=== PATIENT | female | born 1980 | race Caucasian/White ===

== ENCOUNTER 2017-10-15 15:58 | Inpatient (IN) | payer OTHER ==
[~2017-10-15] VITALS: Ht 167.6 cm; Wt 61.5 kg
[2017-10-15 16:46] VITALS: BP 128/67
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
[2017-10-15] MEDS ORDERED: ABILIFY5 M1 PO (18:04)
[2017-10-15] MEDS ORDERED: LYRICA150 M1 PO (18:08)
[2017-10-15] MEDS ORDERED: CYMBALTA30 M1 PO (18:11)
[2017-10-15] MEDS ORDERED: TRAZODONE HCL50 M1 PO (18:13)
[2017-10-15 19:51] VITALS: BP 123/71
[2017-10-16 07:36] VITALS: BP 108/67
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
[2017-10-16 12:23] VITALS: BP 123/63
--- NOTE | 2017-10-16 14:25 | History & Physical ---
General Information and HPI MD Statement: I have seen and personally examined RIGO YAN and documented this H& P. The patient is a 36 year old F who presented with a patient stated chief complaint of suicidal ideation and worsening depression. Source of Information: patient Exam Limitations: no limitations History of Present Illness: 56-year-old female with past medical history significant for fibromyalgia on Lyrica, depression who is admitted to Inpatient Psychiatry suicidal ideation. Patient claims that she was 5 minutes of a from implementing the plan that she had. She had razors in her hand in the bathroom and she wanted to cut his wrists. She's been feeling very overwhelmed and stressed out about situation at home. She has to move soon to a place that she does not have a place to move. Financially she is broken is also committing of some headache. She claims that Lyrica otherwise does help her fibromyalgia. She is having difficulty sleeping. She denies any pain nausea, vomiting or diarrhea constipation. She denies any urinary complaints. Allergies/Medications Allergies: Coded Allergies: Penicillins (Severe, DIFFICULTY BREATHING 10/15/17) Home Med list Aripiprazole (Abilify) 5 MG TABLET 1 TAB PO Q HS MOOD STABILIZER (Reported) Duloxetine Hydrochloride (Cymbalta) 30 MG CAPSULE.DR 30 MG PO DAILY DEPRESSION (Reported) Pregabalin (Lyrica) 150 MG CAPSULE 150 MG PO TID NERVE PAIN (Reported) Trazodone HCl 50 MG TABLET 50 MG PO AT BEDTIME SLEEP AID (Reported) Past History Medical History Neurological: NONE EENT: NONE Cardiovascular: NONE Respiratory: NONE Gastrointestinal: NONE Hepatic: NONE Renal: NONE Musculoskeletal: fibromyalgia Psychiatric: depression Endocrine: NONE Blood Disorders: NONE Cancer(s): NONE RECREATION ADVISER/Reproductive: NONE History of MRSA: No History of VRE: No History of CDIFF: No Influenza Vaccine: 06/25/17 Surgical History Surgical History: none Past Family/Social History Family History Relations & Conditions if any GRANDPARENTS Relation not specified for: FH: diabetes mellitus Psychosocial History Where do you live? 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 EENTM: Reports: see HPI. Cardiovascular: Reports: see HPI. Respiratory: Reports: see HPI. GI: Reports: see HPI. Musculoskeletal: Reports: see HPI. Neurological/Psychological: Reports: see HPI. Exam & Diagnostic Data Last 24 Hrs of Vital Signs/I&O Vital Signs Date Time Temp Pulse Resp B/P B/P Pulse O2 O2 Flow FiO2 Mean Ox Delivery Rate 10/16 1223 73 123/63 10/16 0736 97.5 81 108/67 10/15 1951 98.2 92 123/71 10/15 1646 99.3 94 128/67 Intake & Output 10/16 1600 10/16 0800 10/16 0000 Intake Total Output Total Balance Patient 136 lb Weight Physical Exam General Appearance Alert, Oriented X3, Cooperative, No Acute Distress Skin No Rashes HEENT PERRLA Neck Supple Cardiovascular Regular Rate, Normal S1, Normal S2 Lungs Clear to Auscultation Abdomen Normal Bowel Sounds, Soft, No Tenderness Neurological Cranial Nerves II through XII: INTACT Last 24 Hrs of Labs/Steffen: No labs. Assessment/Plan Assessment: 36-year-old female here with suicidal ideation and worsening depression. Patient also is complaining of headache. Will recommend continue Lyrica. I will check basic blood work for her. I will recommend giving her some ibuprofen off the Tylenol to help with headache. Further psych management will be per psychiatry. As Ranked By This Provider Problem List: 1. Fibromyalgia 2. Depression 3. Headache Miscellaneous Miscellaneous Documentation Attending Case Discussed With: Erendira Wylie M.D. Primary Care Physician: Unknown Patient sees these Specialists none Level of Patient Care: HAYDEE Turner
--- NOTE | 2017-10-16 15:34 | CPS PROVIDER INIT ASMT PSYCH ---
Psychiatric Admission Environmental Conservation Professor's Note Reviewed: Yes Patient Seen and Examined: Yes Identifying Information: 36 yo SWF admitted 10/15/17 on a voluntary basis, referred by [facility] ER. Chief Complaint: SI. Reportedly was in bathtub with razor blade, preparing to cut herself. Reaction to Hospitalization: "A little scared and nervous, but other than that, hopeful that it will help." History of Present Illness Onset of Illness: This episode: 10/10/17. Circumstances Leading to Admission: SI with plan to cut wrist, as above. Problem(s) Justifying Need for Admission: SI. Depression. Other HPI: Reports she was inpatient at [facility] ~ 1 month ago and was discharged 2 weeks ago. Reports symptoms of depression came crashing down again on 10/10/17. She didn't feel well and didn't want to get out of bed. Was feeling very down. Attended [facility] IOP Friday and Friday. Friday night was in the bathtub with a razor. Called her visiting nurse, who called 911. Patient was BIBA to [facility] ER but there were no psychiatric beds available at [facility], so the patient was referred to . Patient reports there was no clear trigger to decompensation. Reports medication and treatment compliance. Does not use drugs or alcohol. Sleep: was not very good since mother in 1997 but got better recently at [facility] with trazodone and Rozerem. Sleep got worse as of this past Friday. Appetite: "it seems to be okay." Energy: definite drop for the past week or so. Case and treatment plan discussed in team meeting. Staff reports that the patient has a headache that she attributes to Abilify. Denying SI. Flat affect. Past Psychiatric History Past Diagnosis(es)- if any: Depression. Fibromyalgia. Past Precipitating Factors- if any: Unclear. - Include inpatient and outpatient treatment Treatment History: OPT Masha Han LCSW. Inpatient recently at [facility]. IOP recently at [facility]. History of Suicide Attempts or Gestures Cut wrist at 17 yo. Substance Abuse History: Denies tobacco and drugs. Alcohol: very rare, not in a really long time. Allergies: Coded Allergies: Penicillins (Severe, DIFFICULTY BREATHING 10/15/17) Home Med List: Lyrica 150 mg tid Cymbalta 30 mg qAM Abilify 5 mg qhs Trazodone 50 mg qhs - Include any medical condition(s) that may - impact the patient's recovery/remission Past Medical History: Fibromyalgia. Appendectomy. Past History Medical History Neurological: NONE EENT: NONE Cardiovascular: NONE Respiratory: NONE Gastrointestinal: NONE Hepatic: NONE Renal: NONE Musculoskeletal: fibromyalgia Psychiatric: depression Endocrine: NONE Blood Disorders: NONE Cancer(s): NONE TOUR COORDINATOR/Reproductive: NONE History of MRSA: No History of VRE: No History of CDIFF: No Influenza Vaccine: 06/25/17 Surgical History Surgical History: appendectomy Psychiatric Family/Social Hx Family History Psychiatric Illness: 2 maternal aunts depression, 1 attempted suicide. Substance Use: Mother drank at times. Suicides: Denied. Social History Living Situation: Lives with 13 yo daughter and a male roommate. Reports that DCF cleared daughter's staying with the roommate while the patient is in the hospital. Significant Relationships (family/friends): Daughter, age 13. Mother in 1997 from an aneurysm in the base of her skull. Patient was 16 at the time. Only child. Father in [place], no contact x 2 years. Education: Graduate of [employer]. Vocation/Occupation: Has not been able to work for ~6 years. Has no income. 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 Legal: No history of arrests. Healthly Behaviors Screening Tobacco Screening Tobacco Use from ED Docu: Never used - If tobacco counseling indicated - the following topics are required. - #1 Recognizing dangerous situations. - #2 Coping Skills. - #3 Basic information about quitting. Status of Tobacco Cessation Counseling: Not Applicable Cessation Med Status Not Applicable Alcohol Screening - ETOH screen POS if BAL >=80 or Audit-C>= M4/F3 Audit-C Score from Diag Assess: 0 Alcohol Use Screening Results: Neg per Audit C &/or BAL - If ETOH counseling indicated - the following topics are required. - #1 Express concern about the patient's - drinking at unhealthy levels, include informing - of national norms for moderate drinking: - men <= 14 drinks/week, max 4 drinks/occasion - women <= 7 drinks/week, max 3 drinks/occasion - #2 Providing feedback, including linking alcohol to - negative physical effects (liver injury, hypertension) - negative emotional effects (relationship problems and - depression) - negative occupational consequences (reduced work - performance) - #3 Advising the patient to abstain from alcohol or - to drink below national norms for moderate drinking - (as listed above). Status of ETOH Use Counseling: N/A B/C NO ETOH Use Metabolic Screening - Screen if on a Neuroleptic Medication - Metabolic screening should include: - Blood Pressure, BMI, Glucose or Hgb A1c, & a - Lipid profile from within the past 365 days. Metabolic Screening () Not Applicable, patient not on a neuroleptic. OR () Patient on a neuroleptic(s) . Enter below results for Hemoglobin A1C, and lipid panel if obtained during the last 365 days. BMI: 21.800 Blood Pressure: 123/63 Laboratory Results From [facility] (If applicable): [x] Pending for 10/17/17. Exam and Plan Mental Status Examination Ambulation Status: Ambulating without difficulty. Appearance: Dressed in a shirt and scrub pants. Appears to have alternating exotropia. Attitude towards examiner: Calm, polite and cooperative. Psychomotor activity: There is no psychomotor agitation/retardation. Behavior: WNL. Quality of speech: Speech is normal in volume, rate and tone. Affect: Affect is calm and blunted. Mood: "I'm a little down today. Impending doom feeling [is] getting worse." Rates sad mood about 7/10. Rates anxiety about 5-6/10. Feels hopeless and helpless. Denies feeling worthless or guilty. Suicidal Ideation: Reports suicidal ideation, feeling that she still would be better off not here. Denies suicide plan or intent. Gives a safety promise for here. Homicidal Ideation: Denies. Hallucinations: Denies AH and VH. Paranoid/Delusional Material: Denies PI and magical matthew. Difficulties with thought organization: Thinking is clear, logical and goal-directed. Insight: Fair. Judgment: Limited. Orientation: Oriented 3. Cognition: Grossly intact. Memory Function: Grossly intact. Estimate of intellectual functioning: Average. Assets/Strengths Patient Identified Assets/Strengths: Creativity and intelligence. Impression/Plan Impression and Plan: The patient is here with recent suicidal ideation in the context of treatment compliance, limited supports, and no income. - Include all active medical diagnosis that require tx DSM 5 Diagnosis(es): Major depression, single episode, severe. Fibromyalgia. - Initial Tx Plan for Active Psych & Medical Conditions Treatment Plan: The patient will be monitored on the unit for safety and mood disorder. Home medications have been continued. Patient has agreed to increase Cymbalta dose to 60 mg daily. Additional information is needed from [facility] and from collaterals. Anticipate once clinically stable, that the patient will be discharged to home, daughter and roommate and will be referred back to [facility]'s IOP. - Factors that would help patient function - in a less restrictive setting. Factors: No longer feeling suicidal.
[2017-10-16 15:41] VITALS: BP 105/61
--- NOTE | 2017-10-16 17:08 | SOCIAL WORKER PROG NOTE PSYCH ---
Social Work Progress Note Progress Note 4:05pm This designer/writer met with patient. She repored that she came to the hospital due to SI: "everything is going on." She stated that she is looking for a new place to stay due to being "kicked out" of her friends house after staying there for a year. Patient stated that she has a 13 year old daughter and has DCF involvement. Patient stated that she had been going to IOP at [facility] but did not find it helpful and felt that the clinicians were not attentive to her care. Patient also reported struggling with Fibromyalgia. She stated that she attempted to apply for social security disability, but was denied and is in the process of appeals. Patient denied SI/HI/AH/VH.
[2017-10-16 20:14] VITALS: BP 135/78
[2017-10-17 07:39] VITALS: BP 120/68
[2017-10-17 11:50] VITALS: BP 105/69
--- NOTE | 2017-10-17 13:43 | CP SOUTH PROGRESS NOTE PSYCH ---
Psych (Inpt) Progress Note Progress Note Include the following elements, when applicable: Involvement in the active treatment of the patient with behavioral observations of the patient and the patient's response to the treatment. Review of the ongoing treatment process in the context of the treatment plan. Indication of how multi-disciplinary staff members are carrying out the treatment plan. Plans for future interventions and recommendations for revision of the treatment plan. Liaison with other physicians/providers. Progress Note: Case and treatment plan discussed in team meeting. Staff reports that yesterday , patient said she had a good day and was adjusting to the unit. Described as pleasant. Reportedly is homeless. The patient indicated this morning she had suicidal ideation. Patient seen at 12:05 PM. States she feels not too bad but she is a little lightheaded today. Reports she is drinking water. Affect is calm and blunted. Reports feeling a little suicidal. Gives a safety promise for here. Rates sad mood probably 6/10 today. Reports "it's definitely there and poking at me when it's quiet." Reports she had poor sleep because of roommate. Rates anxiety probably about 4/10. She feels that she is getting the help that she needs. Feels hopeless. Feels helpless but less so. Feels worthless. Feels guilty a little bit. Denies homicidal ideation. Denies auditory and visual hallucinations. Denies paranoid ideation. Reports appetite was not that great this morning. Energy is low. Tolerating current medications and reports adapting to them. Reports headache is still there but is not bad. Reports Neurontin is helping with anxiety. IMPRESSION: Slow progress. Continue present treatment plan. Continues to require inpatient level of care in light of ongoing suicidal ideation. Monitor response to recent increase in Cymbalta dose. Anticipate likely discharge mid-week next week.
[2017-10-17 15:58] VITALS: BP 123/76
--- NOTE | 2017-10-17 16:44 | SOCIAL WORKER PROG NOTE PSYCH ---
Social Work Progress Note Progress Note This service writer met with patient. She described her mood as "down." She stated that she feels safe on this unit and would immediately inform staff should she feel unsafe or have other concerns. Patient expressed interest in attending IOP. This service writer inquired about how this would impact her location as well as her daughter's school. She stated that she has previously discussed with her daughter the possibility of moving while they are looking for housing. She stated that she would like to attend IOP as "I have heard really good things about it." She stated that she does not want to return to [place] and has concerns about being able to utilize the walk in hours at [facility] due to transportation difficulties as well as experience with medical cabs being unreliable. Patient denied SI/HI/AH/VH. She stated that she has left a vm for her [facility] worker, Riley Reyes, who is aware that she admitted to [facility]. She stated that the friend her daughter is staying with has been approved by [facility]. Patient discussed interest in securing housing and returning to school to study nursing. She appeared future oriented and hopeful. Patient signed an JOE for Riley Reyes at [facility]. 3:09pm This service writer left vm for Riley Reyes, DCF worker, ([phone]) with a call back number.
[2017-10-17 20:05] VITALS: BP 102/68
[2017-10-18 07:47] VITALS: BP 105/61
[2017-10-18 12:30] VITALS: BP 107/63
--- NOTE | 2017-10-18 13:05 | CP SOUTH PROGRESS NOTE PSYCH ---
Psych (Inpt) Progress Note Progress Note Include the following elements, when applicable: Involvement in the active treatment of the patient with behavioral observations of the patient and the patient's response to the treatment. Review of the ongoing treatment process in the context of the treatment plan. Indication of how multi-disciplinary staff members are carrying out the treatment plan. Plans for future interventions and recommendations for revision of the treatment plan. Liaison with other physicians/providers. Progress Note: Chart reviewed, progress discussed with nursing staff. Interviewed patient this morning. She was seen coloring in the kitchen. Reports that her mood is low, her back pain in her low back is bothering her, "my fibromyalgia is acting up". She does report some suicidal ideation, though it is vague and passive without any intent or plan to harm herself on the unit. She is able to identify a number of coping mechanisms, including coloring, other forms of distraction, and we also discussed that a heating packs to her low back which she is very receptive to. She otherwise denies any medication side effects. Denies any HI or AVH. Vital signs are within normal limits. No new laboratory results today. Mental status exam: Adequately groomed female sitting at the table in the kitchen. Fair eye contact, no psychomotor agitation or retardation. Speech was within normal limits. Mood was "not so good ", affect was constricted, non- labile, thought process was logical and linear, content focused on pain, vague suicidal ideation without intent or plan, denies HI. Denies perceptual disturbances. Cognition is grossly intact. Insight and judgment is fair. A/P: Continues to slowly improve, will focus on supportive measures for pain and continue to encourage use of coping mechanisms. Per notes, plan discharge mid week this week.
[2017-10-18 16:02] VITALS: BP 114/62
[2017-10-18 19:26] VITALS: BP 127/68
[2017-10-19 07:37] VITALS: BP 112/68
[2017-10-19 12:04] VITALS: BP 115/59
--- NOTE | 2017-10-19 13:06 | CP SOUTH PROGRESS NOTE PSYCH ---
Psych (Inpt) Progress Note Progress Note Include the following elements, when applicable: Involvement in the active treatment of the patient with behavioral observations of the patient and the patient's response to the treatment. Review of the ongoing treatment process in the context of the treatment plan. Indication of how multi-disciplinary staff members are carrying out the treatment plan. Plans for future interventions and recommendations for revision of the treatment plan. Liaison with other physicians/providers. Progress Note: Chart reviewed, progress discussed with nursing staff. Interviewed patient this morning. Seems to be in increasingly better spirits compared to yesterday. She notes that she uses the hot pack for her back which improved her back pain. Says her mood is "a bit better", says this morning "I woke up and had some suicidal thoughts but no longer ". She has no intention to harm herself on the unit. She noted a nightly headache, which she has attributed to Abilify, and asks to switch this dosing to the morning, which I agreed to trial. She denies any current SI or HI, denies any current AVH. Vital signs are within normal limits. No new laboratory results today. Mental status exam: Adequately groomed female. Fair eye contact, no psychomotor agitation or retardation. Speech was within normal limits. Mood was "a litle better", affect was mildly constricted, non-labile, thought process was logical and linear, content focused on pain, denies current suicidal ideation, denies HI. Denies perceptual disturbances. Cognition is grossly intact. Insight and judgment is fair. A/P: Continues to slowly improve, will focus on supportive measures for pain and continue to encourage use of coping mechanisms. Per the patient's request, I switched Abilify dosing from at bedtime to every morning.
[2017-10-19 16:07] VITALS: BP 105/65
[2017-10-19 19:50] VITALS: BP 112/73
[2017-10-20 07:38] VITALS: BP 95/71
[2017-10-20 12:11] VITALS: BP 110/69
--- NOTE | 2017-10-20 14:00 | CP SOUTH PROGRESS NOTE PSYCH ---
Psych (Inpt) Progress Note Progress Note Include the following elements, when applicable: Involvement in the active treatment of the patient with behavioral observations of the patient and the patient's response to the treatment. Review of the ongoing treatment process in the context of the treatment plan. Indication of how multi-disciplinary staff members are carrying out the treatment plan. Plans for future interventions and recommendations for revision of the treatment plan. Liaison with other physicians/providers. Progress Note: Dr. Machado' notes reviewed. Case and treatment plan discussed in team meeting. Staff reports that the patient continues to report SI. Patient feels that her medications need to be addressed. Patient seen at 1:09 pm. She was walking laps around the unit and took a break to meet with me in office. "I'm not that great. Been really down all weekend. " Reports back pain 5/10 has been bothering her. Heating pad helps with the pain. Reports she now has daytime headaches with shift in Abilify dosing to morning. We agreed to stop the Abilify. Neurontin is helping with anxiety. Reports the number of nursing students on the unit this morning is making her anxious. Affect is calm and blunted to depressed. Sad ~8/10. Anxiety ~6/10. Feels hopeless, helpless, worthless and guilty. Reports SI, feeling that if she weren't here in the hospital, she would probably go back to her original plan of cutting her wrist. Gives a safety promise for here. Denies HI, AH, VH and PI. Sleep: "still not very good." Appetite: "that seems to be okay." Energy: low. Tolerating medications except for headache, which patient attributes to Abilfy. Agrees to increase Cymbalta to 90 mg daily. IMPRESSION: Slow progress. Continue present treatment plan. Continues to require inpatient level of care in light of ongoing SI. Monitor response to increase in Cymbalta dose and to discontinuation of Abilfy. Patient is not able to identify anyone to come in for a family meeting.
[2017-10-20 16:18] VITALS: BP 103/76
--- NOTE | 2017-10-20 17:53 | SOCIAL WORKER PROG NOTE PSYCH ---
Social Work Progress Note Progress Note 4:06pm This ad writer met with patient. She described her mood as "not so great today." Patient discussed feeling overwhelmed by the number of people on the unit. This ad writer and patient identified coping skills that she could utilize to manage this feeling if/when it occurs. Patient inquired about this ad writer's contact with her DCF worker and was informed that a vm had been left. Patient also discussed interest of entering a longer inpatient program to assist with her recovery and provide more structure. Patient stated that she continues to experience SI with a plan to "slit my wrists." She stated that she would not act on this while inpatient. Patient denied HI/AVH.
[2017-10-20 19:48] VITALS: BP 115/67
[2017-10-21 07:39] VITALS: BP 105/60
--- NOTE | 2017-10-21 11:50 | CP SOUTH PROGRESS NOTE PSYCH ---
Psych (Inpt) Progress Note Progress Note Include the following elements, when applicable: Involvement in the active treatment of the patient with behavioral observations of the patient and the patient's response to the treatment. Review of the ongoing treatment process in the context of the treatment plan. Indication of how multi-disciplinary staff members are carrying out the treatment plan. Plans for future interventions and recommendations for revision of the treatment plan. Liaison with other physicians/providers. Progress Note: Case and treatment plan discussed in team meeting. Staff reports that the patient is denying suicidal ideation. Out in the milieu. Attending groups. Wants to work on discharge plan. Patient seen at 10:24 AM. She was in group prior to meeting with me in office. Feels a little down but not as bad as yesterday. States she did not sleep well. Reports she was not able to receive p.r.n. dose of trazodone around 2:30 AM so I changed order so that she can receive the p.r.n. dose after 10 PM. Feels okay off of Abilify. Reports headache has been gone since last night. Affect is calm and euthymic. Rates sad mood 6/10, stating that sad mood is definitely there and she is still having negative thinking in her head. Reports she is trying to be more outwardly positive and "fake it until I make it." States anxiety is actually not that bad today and rates it about 4/10. Feels hopeless but not helpless. Feels worthless and guilty. Reports suicidal ideation but indicates it is a little better than yesterday. Gives a safety promise for here. Denies homicidal ideation. Denies auditory and visual hallucinations and paranoid ideation. Reports appetite has actually been a little down since lunch yesterday. Energy is still down. Tolerating medications well, without complaint. Patient is interested in attending our [facility]. She does not have housing. IMPRESSION: Slow progress. Continue present treatment plan. Seems to be showing incremental improvement with increases in Cymbalta dose and discontinuation of Abilify. Continues to require inpatient level of care in light of ongoing suicidal ideation.
[2017-10-21 12:12] VITALS: BP 118/71
--- NOTE | 2017-10-21 15:03 | Event Note ---
Event Note Event Note: Called to see the patient because she banged her left foot yesterday at the kitchen table and now her left big toe was hurting. Toe is not swollen. There is some range of motion although painful range of motion. She has good pedal pulses. We'll give her Tylenol for pain and will check an x-ray of her left foot.
[2017-10-21 16:00] VITALS: BP 117/71
--- NOTE | 2017-10-21 16:53 | SOCIAL WORKER PROG NOTE PSYCH ---
Social Work Progress Note Progress Note 2:20pm This technical publications writer met with patient. She described her mood as "still depressed. I'm just at fake it til you make it." She stated that she was feeling better physically today as she did not have a headache. Patient reported SI this morning, however denied SI at the time of this meeting. Patient expressed interest in outpatient resources (i.e. case management). Patient stated that she has no income and all living costs have been paid for by her roommate. 4:03pm This technical publications writer spoke with patient's DCF worker, Riley Gonsalez, by phone. Riley stated that DCF became involved in August when the patient was admitted to the hospital (prior to this admission) due the patient being inpatient and her daughter not having a guardian. Riley confirmed the patient's report that her roommate is cleared to care for the daughter. Riley stated that the patient has been living at the current residence "for years" and her roommate has been requesting that the patient contribute to the household. Riley stated that the patient tends to call 911 "alot" and use them as a resource for support. Riley stated that DCF may be filing for neglect; she stated that DCF would not be seeking custody and does not want to remove the child from the patient. She stated, at this point, if patient were to discharge she could return to the child. Riley inquired about medications and diagnosis. Riley stated that she may call the patient in the morning regarding the possbility of filing for neglect and if this were the case she would be served papers by a lisseth. Riley stated that she would inform this technical publications writer regarding updates. Nursing staff was informed of the phone call that may occur tomorrow.
[2017-10-21 20:02] VITALS: BP 110/73
--- NOTE | 2017-10-21 20:45 | RADIOLOGY REPORT ---
EXAMINATION: LEFT FOOT 3 VIEWS CLINICAL INFORMATION: Left foot pain. Injury. COMPARISON: None. TECHNIQUE: AP, lateral, oblique views of the left foot were obtained. FINDINGS: There are no fractures or dislocations. There is mild soft tissue swelling overlying the distal dorsum of the foot. No ankle joint effusion is identified. IMPRESSION: Mild soft tissue swelling without fracture.
[2017-10-22 07:30] VITALS: BP 113/71
[2017-10-22 12:24] VITALS: BP 138/86
[2017-10-22 15:47] VITALS: BP 119/77
--- NOTE | 2017-10-22 15:52 | SOCIAL WORKER PROG NOTE PSYCH ---
Social Work Progress Note Progress Note 2:33pm Dr. Mccabe and this senior grant writer met with patient. She reported some improvement with mood, however, continues to experience SI with a plan to cut her wrists, which she stated she would act on if she were to discharge. Patient stated that she feels safe on this unit and would not act on these thoughts. Patient denied HI /AH/VH. Patient stated that she struggles with MNA, decreased appetite and decreased energy. Patient was agreeable to scheduling a family meeting with her roommate, Bruno Blancas. 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 She expressed interest in [facility] in [place]. This senior grant writer contacted [facility] ) and was informed that they do offer an Adult PHP (as well as IOP) and that referrals are made by scheduling an intake appointment with Bryce ([phone]). This senior grant writer spoke with Bruno Blancas ([phone]) and a "family meeting" was scheduled for 10/23/17 at 2:15pm by phone, as he is unable to attend in person.
--- NOTE | 2017-10-22 15:59 | CP SOUTH PROGRESS NOTE PSYCH ---
Psych (Inpt) Progress Note Progress Note Include the following elements, when applicable: Involvement in the active treatment of the patient with behavioral observations of the patient and the patient's response to the treatment. Review of the ongoing treatment process in the context of the treatment plan. Indication of how multi-disciplinary staff members are carrying out the treatment plan. Plans for future interventions and recommendations for revision of the treatment plan. Liaison with other physicians/providers. Progress Note: Case and treatment plan discussed in team meeting. Staff indicates that the patient endorses suicidal ideation. Visible on the unit. Going to groups. She is not homeless but apparently roommate was disappointed that patient was not doing chores, such as vacuuming. Patient seen with Solange Soni LCSW at 1:33 PM. Affect is calm and blunted. Feels "not too bad today." Feels a little out of it, spaced out. Appears awake and alert. Rates sad mood about 6/10 and anxiety probably 6/10. Feels hopeless and worthless. Feels guilty for admission. Denies feeling helpless. Reports suicidal ideation to cut her wrist. Gives a safety promise for here. Denies homicidal ideation. Denies auditory and visual hallucinations and paranoid ideation. Reports she still is not sleeping well and was up quite a bit last night. Had difficulty staying asleep. Appetite is decreased today and has been for the last 2 days. Energy is still down. Agrees to increase standing trazodone to 100 mg qhs. IMPRESSION: Slow progress. Continue present treatment plan. I have asked the patient to work on a safety plan for when she returns home. We have asked the patient to consent to a "family meeting" with her roommate. Continues to require inpatient level of care in light of ongoing suicidal ideation.
[2017-10-22 19:49] VITALS: BP 114/68
[2017-10-23 07:42] VITALS: BP 108/56
--- NOTE | 2017-10-23 11:50 | SOCIAL WORKER PROG NOTE PSYCH ---
Social Work Progress Note Progress Note RIGO YAN [id number] 1980 RIGO YAN [id number] Pended Authorization # Client Authorization # Type of Request [id number] CONCURRENT Date of Admission/ Start of Services Requested From Submission Date 10/15/2017 10/23/2017 10/23/2017
[2017-10-23 12:40] VITALS: BP 111/60
[2017-10-23 15:49] VITALS: BP 120/70
--- NOTE | 2017-10-23 17:23 | SOCIAL WORKER PROG NOTE PSYCH ---
Social Work Progress Note Progress Note 2:20pm This technical report writer and patient met with her roommate, Bruno Patrick, for a "family meeting." Bruno attended by phone ([phone]). Bruno shared his dissatisfaction with her prior treatment, both inpatient as well as outpatient, such as the lack of support and structure. He also stated that the previous inpatient hospitalization did not incorporate a family meeting prior to discharge. Bruno stated that he has known the patient for 15-20 years, which the patient confirmed, and that the patient and her daughter have been living with Bruno. He requested that the patient contribute to the home and assist with paying bills. He acknowledged that she does not have income at this time and stated that the patient may return to the house upon discharge and is not at risk of being unable to return. Discharge plans that are being explored were discussed, regarding the efforts to identify a PHP. Patient expressed interest in finding a PHP and stated that she would be willing to travel to [facility] if needed as long as [facility] would provide transportation. Patient and Bruno also expressed interest in finding a new visiting nurse service as they were dissatisfied with "[facility]." Bruno requested to be informed discharge plans as they become identified, to include a discharge date. 4:15pm This technical report writer spoke with Jimi at [facility] ([phone]). He confirmed that the patient would be able to utilize [facility] [employer] [facility] for transportation to [place]. 4:19pm This technical report writer contacted Bryce at [facility] ([phone]) to inquire about their PHP. She stated that a referral could be made by carole porter. She also informed this technical report writer of other possible PHP in [place] that may be closer to the patient: - [facility]: [phone] - [facility]: [phone] - [facility]: [phone] Above programs will be contacted prior to submitting a referral to [facility].
--- NOTE | 2017-10-23 17:28 | CP SOUTH PROGRESS NOTE PSYCH ---
See Addendum Psych (Inpt) Progress Note Progress Note Include the following elements, when applicable: Involvement in the active treatment of the patient with behavioral observations of the patient and the patient's response to the treatment. Review of the ongoing treatment process in the context of the treatment plan. Indication of how multi-disciplinary staff members are carrying out the treatment plan. Plans for future interventions and recommendations for revision of the treatment plan. Liaison with other physicians/providers. Progress Note: Case and treatment plan discussed in team meeting. Staff reports that the patient endorsed suicidal ideation. Has reported she feels there is no communication with the treatment team, especially around today's "family" meeting with Bruno. Patient seen at 3:19 PM. She was playing XTWIP with peers prior to meeting with me in office. Reports things are not too bad. She discussed family meeting that took place earlier this afternoon. Reports that it went well with Bruno and her housing is stable. She would [facility] to [facility]. Reports mood is still down and she is kind of fighting off a headache. Denies difficulty falling asleep but reports having middle of the night awakening. Agrees to start melatonin 3 mg nightly. Rates sad mood about 6/10 and anxiety about 5/10. Feels hopeless but not helpless. Feels worthless and guilty. Reports suicidal ideation is still there. She agrees to plan for discharge on Friday and states she can be safe at home with some effort. Denies homicidal ideation. Denies auditory and visual hallucinations and paranoid ideation. Reports appetite is down today. Energy is still down. IMPRESSION: Slow progress. Continue present treatment plan. Continues to report suicidal ideation but I and the staff question this. Discharge is planned for Friday and patient believes she can remain safe at home. Monitor response to addition of melatonin 3 mg nightly.
[2017-10-23 19:40] VITALS: BP 113/67
[2017-10-24 08:10] VITALS: BP 106/76
[2017-10-24 12:02] VITALS: BP 110/67
--- NOTE | 2017-10-24 14:27 | SOCIAL WORKER PROG NOTE PSYCH ---
See Addendum Social Work Progress Note Progress Note This database report writer contacted the following inquiring about PHP: - [facility] - was informed that they do not offer PHP, only IOP - [facility] - was informed that they do not offer PHP, only IOP - [facility] (JOE signed) - spoke with Gladis and was informed that they have a PHP that meets Mon-Fri from 8:45am-1:30pm, lunch included. After completing PHP (approximately 2 weeks) the patient will be referred to their IOP. Patients meet with a psychiatrist on a weekly basis in both PHP and IOP. At Gladis's request, the patient's History and Physical, Demographics, Medication List and most recent psychiatrist note (10/23/17) was faxed to her at [phone] at 9:01am today. Gladis contacted this database report writer after reviewing the clinical documents and an intake was scheduled for , 10/30/17, at 2pm. An appointment was offered for 10/28/17 at 8am, however, patient was concerned about being able to schedule the medical cab to arrive on time for the 10/28/17 appointment. 2:07pm This database report writer met with patient. She discussed looking forward to the PHP at [facility] and feeling some improvement with her mood due to "now I feel like I have a plan and I'm not just being pushed out of the hospital." Patient reported that she continues to experience SI with the plan to cut her wrist. This database report writer and patient discussed strategies to cope as well as a safety plan that she could utilize upon discharge. Patient agreed to work on a safety plan this afternoon and review it with this database report writer when it is complete. She was also agreeable to reviewing the safety plan with her roommate.
--- NOTE | 2017-10-24 15:30 | CP SOUTH PROGRESS NOTE PSYCH ---
Psych (Inpt) Progress Note Progress Note Include the following elements, when applicable: Involvement in the active treatment of the patient with behavioral observations of the patient and the patient's response to the treatment. Review of the ongoing treatment process in the context of the treatment plan. Indication of how multi-disciplinary staff members are carrying out the treatment plan. Plans for future interventions and recommendations for revision of the treatment plan. Liaison with other physicians/providers. Progress Note: Case and treatment plan discussed meeting. Staff reports that the patient is denying suicidal ideation. Patient is planning for discharge on Friday. Going to groups. Patient seen at 1:25 PM. She was in art group prior to meeting with me in office. Feels "not too bad." Affect is calm and blunted. Reports feeling a little lightheaded/dizzy today. I advised her to get up slowly and to push fluids. Reports melatonin is helping with sleep. Had middle of the night awakening but got back to sleep. [place] a little groggy this morning. Appears awake and alert. Rates sad mood probably 5/10 today. She states the sadness is definitely there but it is not really bad. Rates anxiety probably 6/10 because there are multiple nursing students on the unit. She finds Neurontin helpful for anxiety. Feels hopeless but not helpless. Feels worthless but not guilty. Reports suicidal ideation, thinking she does not need to be here. She reports it is a little voice, her own voice. She is working on a safety plan. Denies homicidal ideation. Denies auditory hallucinations except for her own voice in her head. Denies visual hallucinations and paranoid ideation. Reports appetite is still down. Energy is described as a little bit better today. IMPRESSION: Slow progress. Continue present treatment plan. Anticipate discharge on Friday to home, daughter and roommate with follow up at [facility].
[2017-10-24 16:21] VITALS: BP 134/83
[2017-10-24 19:34] VITALS: BP 126/71
[2017-10-25 07:36] VITALS: BP 105/63
--- NOTE | 2017-10-25 10:44 | CP SOUTH PROGRESS NOTE PSYCH ---
Psych (Inpt) Progress Note Progress Note Include the following elements, when applicable: Involvement in the active treatment of the patient with behavioral observations of the patient and the patient's response to the treatment. Review of the ongoing treatment process in the context of the treatment plan. Indication of how multi-disciplinary staff members are carrying out the treatment plan. Plans for future interventions and recommendations for revision of the treatment plan. Liaison with other physicians/providers. Progress Note: Pt very upset today, "not that great." Yesterday, she was told the [facility] is pursuing a neglect case against her and she feels that she "dragged her daughter into a mess." She notes some SI to cut her wrist which is fleeting since then. She is very future oriented to PHP and working hard to have her daughter in her total care. Feels safe today. Current Medications Sig/Hawa Start time Last Medication Dose Route Stop Time Status Admin Acetaminophen 650 MG Q6P PRN 10/16 1300 AC 10/23 PO 1115 Al Hydroxide/Mg 30 ML Q4-6 PRN PRN 10/16 1300 AC Hydroxide PO Benztropine Mesylate 1 MG Q6P PRN 10/16 1300 AC 10/24 PO 1929 Benztropine Mesylate 1 MG Q6P PRN 10/16 1300 AC IM Duloxetine HCl 90 MG DAILY@10/21 0800 AC 10/25 PO 0926 Gabapentin 600 MG Q6P PRN 10/25 1015 AC PO Gabapentin 300 MG .STK-MED ONE 10/24 1613 DC PO 10/24 1614 Gabapentin 300 MG Q6P PRN 10/16 1300 DC 10/24 PO 1615 Haloperidol 5 MG Q6P PRN 10/16 1300 AC 10/24 PO 1929 Haloperidol 5 MG Q6P PRN 10/16 1300 AC IM Hydroxyzine HCl 50 MG Q6P PRN 10/25 1015 AC PO Lorazepam 2 MG Q6P PRN 10/24 1530 AC IM Magnesium Hydroxide 30 ML AT BEDTIME PRN 10/16 1300 AC PO Melatonin 3 MG AT BEDTIME 10/23 2200 AC 10/24 PO 2238 Pregabalin 150 MG 0800,1400,0 10/19 1400 AC 10/25 PO 0750 Trazodone HCl 100 MG AT BEDTIME 10/22 220 AC 10/24 PO 2322 Trazodone HCl 50 MG DAILY NEEDED PRN 10/21 1030 AC PO Vital Signs Date Time Temp Pulse Resp B/P B/P Pulse O2 O2 Flow FiO2 Mean Ox Delivery Rate 10/25 0736 97.7 93 105/63 10/24 1934 98.0 108 126/71 10/24 1621 93 134/83 10/24 1202 77 110/67 MSE General appearance: good hygiene and grooming; Attitude: cooperative; Eye contact: appropriate; Movement: no psychomotor agitation or slowing; Speech: nl fluency, nl rate/rhythm, nl volume, nl prosody; Mood: "not that good" Affect: sad, tearful, flat, appropriate, constricted, non-labile, congruent; Thought process: linear and goal-directed; Thought content: denied SI or HI, no paranoid ideation; Perception: denied hallucinations- auditory, visual, does not appear to be responding to internal stimuli; I/J: limited A/P: Pt with MDD with multiple psychosocial stressors, the most recent and severe is the DCF case leading to acute worsening of symptoms though pt is better overall. - Increased gabapentin to 600mg PRN - Added hydroxyzine PRN anxiety -Continue current medication regimen -Encourage integration into the milieu
[2017-10-25 12:15] VITALS: BP 104/59
[2017-10-25 15:47] VITALS: BP 122/65
[2017-10-25 19:47] VITALS: BP 128/70
[2017-10-26 07:35] VITALS: BP 107/66
--- NOTE | 2017-10-26 11:42 | CP SOUTH PROGRESS NOTE PSYCH ---
Psych (Inpt) Progress Note Progress Note Include the following elements, when applicable: Involvement in the active treatment of the patient with behavioral observations of the patient and the patient's response to the treatment. Review of the ongoing treatment process in the context of the treatment plan. Indication of how multi-disciplinary staff members are carrying out the treatment plan. Plans for future interventions and recommendations for revision of the treatment plan. Liaison with other physicians/providers. Progress Note: Pt notes brighter mood as visited by her 13yo daughter yesterday. She has renewed resolve to fight the DCF case. Continues to endorse +SI if not hospitalized. Notes some sore throat. Spoke at length with patient about practicing coping skills on safety plan while here and more stable so that they can be implemented when in crisis at home. Denies HI. Current Medications Sig/Hawa Start time Last Medication Dose Route Stop Time Status Admin Acetaminophen 650 MG Q6P PRN 10/16 1300 AC 10/23 PO 1115 Al Hydroxide/Mg 30 ML Q4-6 PRN PRN 10/16 1300 AC Hydroxide PO Benzocaine/Menthol 1 NANCY Q2P PRN 10/26 1130 AC PO Benztropine Mesylate 1 MG Q6P PRN 10/16 1300 AC 10/24 PO 1929 Benztropine Mesylate 1 MG Q6P PRN 10/16 1300 AC IM Duloxetine HCl 90 MG DAILY@0810/21 0800 AC 10/26 PO 1024 Gabapentin 600 MG Q6P PRN 10/25 1015 AC 10/25 PO 1109 Haloperidol 5 MG Q6P PRN 10/16 1300 AC 10/24 PO 1929 Haloperidol 5 MG Q6P PRN 10/16 1300 AC IM Hydroxyzine HCl 50 MG Q6P PRN 10/25 1015 AC 10/25 PO 1857 Lorazepam 2 MG Q6P PRN 10/24 1530 AC IM Magnesium Hydroxide 30 ML AT BEDTIME PRN 10/16 1300 AC PO Melatonin 3 MG AT BEDTIME 10/23 2200 AC 10/25 PO 2241 Oxymetazoline HCl 2 SPRAY BID 10/26 1129 AC MAYA 10/28 2201 Pregabalin 150 MG 0800,1400,2200 10/19 1400 AC 10/26 PO 0901 Trazodone HCl 100 MG AT BEDTIME 10/22 2200 AC 10/25 PO 2241 Trazodone HCl 50 MG DAILY NEEDED PRN 10/21 1030 AC PO Vital Signs Date Time Temp Pulse Resp B/P B/P Pulse O2 O2 Flow FiO2 Mean Ox Delivery Rate 10/26 0735 97.3 92 107/66 10/25 1947 99.2 104 128/70 10/25 1547 97 122/65 10/25 1215 71 104/59 MSE General appearance: good hygiene and grooming; Attitude: cooperative; Eye contact: appropriate; Movement: no psychomotor agitation or slowing; Speech: nl fluency, nl rate/rhythm, nl volume, nl prosody; Mood: "a little better" Affect: sad, tearful, flat, appropriate, constricted, non-labile, congruent; Thought process: linear and goal-directed; Thought content: +SI, passive here, active if not hospitalized to slit writs, denied HI, no paranoid ideation; Perception: denied hallucinations- auditory, visual, does not appear to be responding to internal stimuli; I/J: limited A/P: Pt with MDD with multiple psychosocial stressors, the most recent and severe is the DCF case leading to acute worsening of symptoms though pt is better overall able to see her daughter yesterday. - Added afrin x3d and throat drops for sore throat -Continue current medication regimen -Encourage integration into the milieu
[2017-10-26 11:54] VITALS: BP 105/63
[2017-10-26 15:33] VITALS: BP 119/66
[2017-10-26 19:26] VITALS: BP 124/74
[2017-10-27 07:41] VITALS: BP 102/65
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
[2017-10-27 12:26] VITALS: BP 109/67
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
[2017-10-27 16:06] VITALS: BP 101/74
--- NOTE | 2017-10-27 16:14 | SOCIAL WORKER PROG NOTE PSYCH ---
Social Work Progress Note Progress Note [facility] review entered: Member Name Member ID Member Subscriber Name Subscriber ID RIGO YAN [id number] 1980 RIGO YAN [id number] Pended Authorization # Client Authorization # Type of Request [id number] CONCURRENT Date of Admission/ Start of Services Requested From Submission Date 10/15/2017 10/27/2017 10/27/2017 Level of Service Type of Service Level of Care Type of Care INPATIENT/OC Mental Health Inpatient Inpatient Hospital - Inpatient Hospital
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
[2017-10-27 19:53] VITALS: BP 106/74
[2017-10-28 07:43] VITALS: BP 94/64
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
[2017-10-28 12:22] VITALS: BP 110/65
[2017-10-28 15:54] VITALS: BP 127/77
--- NOTE | 2017-10-28 17:35 | SOCIAL WORKER PROG NOTE PSYCH ---
Social Work Progress Note Progress Note 1:30pm This check writer salesperson met with patient. She reported increased Fibromyalgia pain resulting in decreased mood. She reported ongoing SI with a plan to cut her wrists and did not feel safe discharging. She stated that he increased anxiety is triggering the SI. She denied HI/AH/VH. Patient and this check writer salesperson discussed visiting nurse services and exploring other agencies due to her disatisfaction with [facility]. This check writer salesperson contacted [facility] who stated that they do not provide behavioral health services in the patient's town. This check writer salesperson spoke with Lesley at [facility] who stated that they would be unable to provide any services in the patient's town. Due to unsuccessful attempts to identify an alternate agency, patient was agreeable to returning to [facility]. This check writer salesperson spoke sierra Louis at [facility] who stated that they would be willing to resume services with the patient upon discharge and requested to be informed about a discharge date when available.
--- NOTE | 2017-10-28 17:55 | SOCIAL WORKER PROG NOTE PSYCH ---
Social Work Progress Note Progress Note Patient scheduled a Allen ride to the intake at [facility] on 10/30/17 with picker / packer scheduled for 1pm. This short story writer contacted Allen to inquire about whether the picker / packer could occur at , and was informed by La that this could only occur as a discharge ride home. Patient's DCF worker, Riley Reyes, contacted this short story writer by phone and was informed that the patient remains admitted to this unit as this time. Current intake for PHP is still scheduled for 10/30/17 at 2pm and patient is working to identify a back up ride to the appointment should difficulties arise with Cristina. Riley stated that [facility] does not offer rides. Riley reminded this short story writer that she will be out of the office as of 10/30 for the next week and that her building repair maintenance supervisor, Solange Levin, could be contacted in her absence.
[2017-10-28 19:37] VITALS: BP 107/72
[2017-10-29 07:44] VITALS: BP 100/67
[2017-10-29] MEDS ORDERED: TRAZODONE HCL100 M1 PO (11:38)
[2017-10-29] MEDS ORDERED: GABAPENTIN300 M2 PO (11:38)
[2017-10-29] MEDS ORDERED: MELATONIN3 M4 PO (11:38)
[2017-10-29] MEDS ORDERED: DULOXETINE HCL60 MG PO (11:38)
[2017-10-29] MEDS ORDERED: HYDROXYZINE HCL50 M1 PO (11:38)
--- NOTE | 2017-10-29 11:50 | Patient Discharge Instructions ---
Psych Discharge Inst General Discharge Information Reason for Admission: Suicidal ideation. Reportedly was in bathtub with razor blade, preparing to cut herself. Psy Discharge Primary Diag+ Major depression, single episode, severe Psy Discharge Secondary Diag+ Fibromyalgia Summary Tests/Major Procedures Lab Cholesterol 195 MG/DL 10/17/17 0645 Cholesterol/HDL Ratio 4 % 10/17/17 0645 HDL Cholesterol 52 mg/dL 10/17/17 0645 Hemoglobin A1c 5.0 % 10/17/17 0645 LDL Cholesterol, Calc 120 mg/dL 10/17/17 0645 TSH &T3 &Free T4 Intrp 1.950 uIU/mL 10/17/17 0645 Triglycerides 116 mg/dL 10/17/17 0645 EKG 10/27/17: sinus rhythm @ 81, no prior EKG, normal EKG, QT 372, QTc 432. SERVICE DATE: 10/21/17- EXAM TYPE: RAD - XRY-FOOT COMPLETE, LEFT EXAMINATION: LEFT FOOT 3 VIEWS CLINICAL INFORMATION: Left foot pain. Injury. COMPARISON: None. TECHNIQUE: AP, lateral, oblique views of the left foot were obtained. FINDINGS: There are no fractures or dislocations. There is mild soft tissue swelling overlying the distal dorsum of the foot. No ankle joint effusion is identified. IMPRESSION: Mild soft tissue swelling without fracture. Other labs were done at [facility] ER and were reviewed. Studies Pending at [facility]: Throat culture 10/27/17: preliminary: mixed sonia, no beta strep isolated. Patient Instructions Contact Information Your Psychiatrist on [facility] was Carlos Mccabe MD * If you are experiencing an emergency related to this hospitalization, please call [phone] to contact the treating psychiatrist or the psychiatrist-on- call. * To Request a copy of your medical records, please contact the Medical Records Department at [phone]. * To request results of studies pending at the time of discharge, please call [phone]. * Continue your Medications until directed to stop by your Healthcare provider. General Medication Information Please continue to take your new medications and your continued home medications , unless otherwise indicated on your discharge medication list, or unless directed by your MD or CURTAIN STITCHER to stop them. Special Instructions Diet Regular Activity Normal Other Inst/Recommendations See PCP about ankle edema. - Tobacco Use Treatment Offered Post DC Medications Offered: Not Applicable Post DC Tobacco Treatment Plan: Not Applicable - EtOH/Drug Use D/O Treatment Offered Post DC Medications Offered: NA-No EtOH/Drug Use D/O Post DC EtOH/SubAbuse TX Plan: NA-No EtOH/Drug Use D/O Metabolic Screening ([x]) Not Applicable, patient not on a neuroleptic. OR () Patient on a neuroleptic(s) . Enter below results for Hemoglobin A1C, and lipid panel if obtained during the last 365 days. BMI: 21.800 Blood Pressure: 100/67 Laboratory Results From [facility] (If applicable): Advance Directives Does the Patient have Medical Advance Directives No/Per pt req info given Does Pt have Psychiatric Advance Directives? No/Per pt req info provid Does Patient have a Designated Surrogate Decision Maker: No Information About Psychiatric Advance Directives Provided? Yes Discharge Plan Post Hospital Treatment Plan: [facility] 10/30/17 at 2 pm.
[2017-10-29 12:14] VITALS: BP 115/68
--- NOTE | 2017-10-29 14:34 | CP SOUTH PROGRESS NOTE PSYCH ---
Psych (Inpt) Progress Note Progress Note Include the following elements, when applicable: Involvement in the active treatment of the patient with behavioral observations of the patient and the patient's response to the treatment. Review of the ongoing treatment process in the context of the treatment plan. Indication of how multi-disciplinary staff members are carrying out the treatment plan. Plans for future interventions and recommendations for revision of the treatment plan. Liaison with other physicians/providers. Progress Note: Case and treatment plan discussed in team meeting. Staff reports that the patient denied suicidal ideation. She said maybe she will be going today and she is okay with that. Patient seen at 10:46 AM. Patient reports she wants to go home. Reports she has discussed her safety plan with her roommate, Bruno. Affect is calm and blunted to euthymic. Patient has an intake at [facility] tomorrow at 2 pm. Reports she is still sad, probably at a 6/10. Rates anxiety probably 4/10. States she took Neurontin. Denies feeling hopeless, helpless or worthless. Reports mild guilt about rehospitalization being an emotional burden to her daughter. Patient reports suicidal ideation. She states she has had it for the last 2 months. Denies intention of killing herself. Denies homicidal ideation. Denies auditory and visual hallucinations and paranoid ideation. Reports sleep is still really broken. Appetite is not too bad. Reports energy today is actually up. Tolerating medications well, without complaint. Feels ready and safe for discharge. Has a safety plan. IMPRESSION: Condition improved. Patient has not demonstrated any self-harm or suicidal behavior while here. She has chronic, intermittent suicidal ideation, and in my opinion, does not pose a risk of imminent danger to self or others. Okay for discharge today to home with follow-up at [facility], as above.
--- NOTE | 2017-10-29 14:45 | SOCIAL WORKER PROG NOTE PSYCH ---
Social Work Progress Note Progress Note 10am This jingle writer met with patient. She denied SI/HI/AH/VH and reported her mood as "pretty good." Patient was agreeable to attending the intake at [facility] tomorrow, 10/30/17, at 2pm and stated that she felt safe leaving the hospital today. 10:10am This jingle writer and patient contacted her roommate/friend, Bruno regarding discharge plans. He was informed of the intake appointment tomorrow with [facility] and that patient will resume visiting nurse services through [facility] tomorrow. Bruno was informed of unsuccessful efforts to identify an alternate visiting nurse agency and that the patient ultimately decided to continue with [facility]. Bruno was also informed of the safety plan that the patient has created and will review this with him once she returns home today. Bruno did not identify any concerns about the patient discharging today and stated that he has spoken with her and feels progress has been made: "she sounds good to be released." This jingle writer spoke with Missy at [facility]. They will be unable to start services this evening due to the weather and will contact the patient tomorrow to schedule a time for them to resume services tomorrow, 10/30/17. This jingle writer spoke with patient and Bruno and both agreed that Bruno would hold the medications and keep them in a secured placed, unknown to the patient, until the visiting nurse arrives tomorrow. Patient would fill the prescriptions at [facility] and provide them to Bruno immediately upon arriving home. Bruno also stated that he will be with the patient all weekend. This plan was reviewed with Dr. Mccabe. 11:27pm This jingle writer spoke with Riley Reyes at [facility] by phone informing that discharge is scheduled for today. She was informed of the discharge plan. She stated that the patient is permitted to return to the home with her daughter and friend (Bruno). 11:45am This jingle writer spoke with Masha Han at the request of the patient. Masha was informed that the patient has not met with her since August 2017. Masha was informed of the current admission with plan to discharge today and attend the [facility] intake tomorrow. Masha stated that she will not close the case and the patient could decide if she would like to meet with Masha during her available Friday hours or wait until after she has completed the PHP and/or IOP. Per Dr. Mccabe, patient reported to him that she had been experiencing SI. This jingle writer spoke with the patient regarding this. She explained that her thoughts are intermittent and she denied SI earlier as she wanted to discharge in order to return home to her daughter. Patient denied any plan, means or intent and stated that she feels safe to discharge today. She identified the safety plan that she will utilize and discussed looking forward to attending the [facility]. In addition, patient stated that she plans to create a coping skills kit when she arrives home to utilize. She stated that she is not feeling anxious today. 12:08pm This jingle writer contacted Cristina and spoke with Seema. A discharge ride has been scheduled to transport patient home with "immediate apple picker." ref # [id number]
--- NOTE | 2017-10-29 15:06 | DISCHARGE SUMMARY REPORT-PSYCH ---
See Addendum Visit Information Visit Dates/Diagnosis' Admission Date: 10/15/17 Discharge Date: 10/29/17 Reason for Admission: Suicidal ideation. Reportedly was in bathtub with razor blade, preparing to cut herself. Psy Discharge Primary Diag: Major depression, single episode, severe Psy Discharge Secondary Diag: Fibromyalgia Hospital Course Significant Lab Findings: Lab Cholesterol 195 MG/DL 10/17/1745 Cholesterol/HDL Ratio 4 % 10/17/17644 HDL Cholesterol 52 mg/dL 10/17/17 0645 Hemoglobin A1c 5.0 % 10/17/17 0645 LDL Cholesterol, Calc 120 mg/dL 10/17/17 0645 TSH &T3 &Free T4 Intrp 1.950 uIU/mL 10/17/17 06 Triglycerides 116 mg/dL 10/17/1745 EKG 10/27/17: sinus rhythm @ 81, no prior EKG, normal EKG, QT 372, QTc 432. SERVICE DATE: 10/21/17- EXAM TYPE: RAD - XRY-FOOT COMPLETE, LEFT EXAMINATION: LEFT FOOT 3 VIEWS CLINICAL INFORMATION: Left foot pain. Injury. COMPARISON: None. TECHNIQUE: AP, lateral, oblique views of the left foot were obtained. FINDINGS: There are no fractures or dislocations. There is mild soft tissue swelling overlying the distal dorsum of the foot. No ankle joint effusion is identified. IMPRESSION: Mild soft tissue swelling without fracture. Other labs were done at [facility] ER and were reviewed. Course Complications: Patient reportedly banged her left foot on kitchen table. X-ray was negative. Consultations: Patient was seen for admission H&P by Dr. Gordillo, who noted: "Assessment: 36-year-old female here with suicidal ideation and worsening depression. Patient also is complaining of headache. Will recommend continue Lyrica. I will check basic blood work for her. I will recommend giving her some ibuprofen off the Tylenol to help with headache. Further psych management will be per psychiatry. As Ranked By This Provider Problem List: 1. Fibromyalgia 2. Depression 3. Headache" The patient was seen for a second opinion about safety for discharge by psychiatrist Dr. Kurtis Singh. He recommended adding lithium and short-term benzodiazepine. These recommendations were taken under advisement and were deferred to the consideration of outpatient treaters. Allergies: Coded Allergies: Penicillins (Severe, DIFFICULTY BREATHING 10/15/17) Hospital Course/TX Response: The patient was monitored on the unit for safety and mood disorder. She participated in multi-modal treatments on the unit. She was continued on Cymbalta with dose tapered up to 120 mg dailiy. Abilify was stopped because of headaches. Patient has chronic intermittent suicidal ideation but she developed a safety plan for maintaining her safety at home. Progress note from date of discharge, 10/29/17: Case and treatment plan discussed in team meeting. Staff reports that the patient denied suicidal ideation. She said maybe she will be going today and she is okay with that. Patient seen at 10:46 AM. Patient reports she wants to go home. Reports she has discussed her safety plan with her roommate, Bruno. Affect is calm and blunted to euthymic. Patient has an intake at [facility] tomorrow at 2 pm. Reports she is still sad, probably at a 6/10. Rates anxiety probably 4/10. States she took Neurontin. Denies feeling hopeless, helpless or worthless. Reports mild guilt about rehospitalization being an emotional burden to her daughter. Patient reports suicidal ideation. She states she has had it for the last 2 months. Denies intention of killing herself. Denies homicidal ideation. Denies auditory and visual hallucinations and paranoid ideation. Reports sleep is still really broken. Appetite is not too bad. Reports energy today is actually up. Tolerating medications well, without complaint. Feels ready and safe for discharge. Has a safety plan. IMPRESSION: Condition improved. Patient has not demonstrated any self-harm or suicidal behavior while here. She has chronic, intermittent suicidal ideation, and in my opinion, does not pose a risk of imminent danger to self or others. Okay for discharge today to home with follow-up at [facility], as above. Discharge HBIPS - Tobacco Use Treatment Offered Post DC Medications Offered: Not Applicable Post DC Tobacco Treatment Plan: Not Applicable - EtOH/Drug Use D/O Treatment Offered Post DC Medications Offered: NA-No EtOH/Drug Use D/O Post DC EtOH/SubAbuse TX Plan: NA-No EtOH/Drug Use D/O Metabolic Screening - Screen if on a Neuroleptic Medication - Metabolic screening should include: - Blood Pressure, BMI, Glucose or Hgb A1c, & a - Lipid profile from within the past 365 days. Metabolic Screening ([x]) Not Applicable, patient not on a neuroleptic. OR () Patient on a neuroleptic(s) . Enter below results for Hemoglobin A1C, and lipid panel if obtained during the last 365 days. BMI: 21.800 Blood Pressure: 115/68 Laboratory Results From [facility] EHR (If applicable): Discharge Instructions General Discharge Information Multiple Neuroleptics: ([x]) Not Applicable OR Document below three failed attempts at monotherapy, or a plan to taper to monotherapy, or augmentation of Clozapine. () Discharge Diet Regular Discharge Activity Normal DC Disposition: Patient is returning to home, daughter, and roommate, Rich. Referrals Ordered Referrals Provider Referral 10/30/17 For Groups: [[facility]] [facility] - [address] [phone] Intake: , 10/30/17, at 2pm Provider Referral 10/30/17 For Groups: [[facility]] [facility] [phone] Visiting nurse services will begin on , 10/30/17. Prescriptions Stop taking the following medications: Aripiprazole (Abilify) 5 MG TABLET ORAL Q HS Duloxetine Hydrochloride (Cymbalta) 30 MG CAPSULE. ORAL DAILY Trazodone HCl (Trazodone HCl) 50 MG TABLET ORAL AT BEDTIME Continue taking these medications: Pregabalin (Lyrica) 150 MG CAPSULE 150 Milligram ORAL THREE TIMES DAILY Comments: Last Taken:10/29/17 Time:0900 Start taking the following new medications: Gabapentin (Gabapentin) 300 MG CAPSULE 2 Capsule ORAL EVERY SIX HOURS NEEDED as needed for ANXIETY/AGITATION/ INSOMNIA Qty = 56 No Refills Comments: Last Taken:10/29/17 Time:0730 Duloxetine HCl (Duloxetine HCl) [address].DR Cantrell Caplet ORAL DAILY Qty = 28 No Refills Comments: Last Taken:10/29/17 Time:0900 Trazodone HCl (Trazodone HCl) 100 MG TABLET 1 Tablet ORAL AT BEDTIME Qty = 14 No Refills Comments: Last Taken:10/28/17 Time:2200 Hydroxyzine Hydrochloride (Atarax) 50 MG TAB 50 Milligram ORAL EVERY SIX HOURS NEEDED as needed for ANXIETY/AGITATION/ INSOMNIA Qty = 28 No Refills Comments: Last Taken:10/28/17 Time:1600 Melatonin (Melatonin) 3 MG TABLET 3 Milligram ORAL AT BEDTIME Qty = 14 No Refills Comments: Last Taken:10/28/17 Time:2200 Other Inst/Recommendations See PCP about ankle edema. Studies Pending at Discharge Throat culture 10/27/17: preliminary: mixed sonia, no beta strep isolated. Copies To: [facility] PHP
[2017-10-29 15:38] VITALS: BP 124/75
--- NOTE | 2017-10-30 18:18 | SOCIAL WORKER PROG NOTE PSYCH ---
Social Work Progress Note Progress Note This appeals writer left theron Griffith at [facility] informing her that an updated Psychiatrist Discharge Summary had been faxed to her (fax: [phone] at [phone]). This appeals writer spoke with patient's roommate, Bruno, by phone. He confirmed that he held her medications until her provided them to the visiting nurse today. He added that the patient attended today's intake at [facility].
== END 2017-10-29 18:11 | DRG 751 ==
LOC: CP SOUTH 15:58
PROVIDERS: Psychiatry & Neurology Psychiatry
DX: F32.2 Major depressive disorder, single episode, severe without psychotic features (principal); M79.7 Fibromyalgia
CPT/HCPCS: 36415; 73630-LT; 93005; 93010; J0515; J1630; J3101